=== PATIENT | female | born 1955 | race Caucasian/White ===

== ENCOUNTER 2017-04-23 20:34 | Observation (INO) | payer OTHER ==
[~2017-04-23] VITALS: Ht 160 cm; Wt 56.8 kg
[~2017-04-23 20:34] MED LIST: Aspirin E.C. PO; BENICAR20 MG PO; COSOPT EYE DROPS5 ML BOTH EYES; COZAAR100 MG PO; Colace PO; Cordarone, Pacerone PO; Coumadin Protocol PO; DORZOLAMIDE-TIM10 ML BOTH EYES; FOLIC ACID1 MG PO; Flexeril PO; Folvite PO; LATANOPROST2.5 ML BOTH EYES; Lopressor PO; METOPROLOL SUCC50 MG PO; PRAVASTATIN SOD40 MG PO; Theragran PO; Thiamine,Vitamin B1 PO; ULTRAM50 MG PO; Ultram PO; VITAMIN B-12500 MC3 PO; Xalatan 0.005% Ophth BOTH EYES
[2017-04-23 21:05] LABS: HEMATOCRIT 28.8 % (36.0-46.0); HEMOGLOBIN 9.8 G/DL (11.9-15.5); MCH 34.3 PG (29.0-34.0); MCV 100.7 FL (83-99); PLATELET COUNT 363 K/uL (156-360); RBC DIS.WIDTH-CV 13.7 % (11.8-14.6); RBC DIS.WIDTH-SD 50.2 % (39-53); RED BLOOD COUNT 2.86 M/uL (3.80-5.20); WHITE BLOOD COUNT 7.6 K/uL (4.1-10.2)
[2017-04-23 21:14] LABS: CHLORIDE 109 mEq/L (99-109); POTASSIUM 3.8 mEq/L (3.7-5.4); SODIUM 137 mEq/L (136-147)
[2017-04-23 21:16] LABS: GLUCOSE 79 mg/dL (70-99)
[2017-04-23 21:20] LABS: CREATININE 0.8 mg/dL (0.6-1.3); GFR ESTIMATE (CALCULATED) > 59 mL/min/; UREA NITROGEN (BUN) 14 mg/dL (9-23)
[2017-04-23 21:27] LABS: TROP-I INTERPRETATION NEGATIVE; TROPONIN-I < 0.01 ng/mL (0.0-0.30)
[2017-04-23] MEDS ORDERED: ONDANSETRON HCL4 MG PO (22:59)
[2017-04-23] MEDS ORDERED: TRAMADOL HCL50 MG PO (23:01)
[2017-04-23] MEDS ORDERED: LOSARTAN POTAS100 MG PO (23:03)
[2017-04-24 03:07] VITALS: BP 118/73
[2017-04-24 03:37] LABS: TROP-I INTERPRETATION NEGATIVE; TROPONIN-I < 0.01 ng/mL (0.0-0.30)
[2017-04-24 07:55] VITALS: BP 103/73
[2017-04-24 09:16] LABS: HEMATOCRIT 25.2 % (36.0-46.0); HEMOGLOBIN 8.5 G/DL (11.9-15.5); MCH 34.7 PG (29.0-34.0); MCHC 33.7 G/DL (30.0-36.0); MCV 102.9 FL (83-99); PLATELET COUNT 281 K/uL (156-360); RBC DIS.WIDTH-CV 14.2 % (11.8-14.6); RBC DIS.WIDTH-SD 53.5 % (39-53); RED BLOOD COUNT 2.45 M/uL (3.80-5.20); WHITE BLOOD COUNT 5.4 K/uL (4.1-10.2)
[2017-04-24 09:37] LABS: TROP-I INTERPRETATION NEGATIVE; TROPONIN-I < 0.01 ng/mL (0.0-0.30)
[2017-04-24 09:43] LABS: ALBUMIN 2.5 G/DL (3.2-4.8); ALKALINE PHOSPHATASE 76 IU/L (3-129); ALT (GPT) 22 IU/L (3-49); AST (GOT) 22 IU/L (2-34); CHLORIDE 110 MEQ/L (99-109); GFR ESTIMATE (CALCULATED) > 59 mL/min/; GLUCOSE 77 mg/dL (70-99); POTASSIUM 4.1 MEQ/L (3.7-5.4); SODIUM 137 MEQ/L (136-147); TOTAL BILIRUBIN 0.4 MG/DL (0.0-1.0); UREA NITROGEN (BUN) 16 mg/dL (9-23)
[2017-04-24] MEDS ORDERED: PROTONIX40 MG PO (15:11)
== END 2017-04-24 15:59 | disposition home or self-care (01) ==
LOC: EME 20:34 → EDOF 23:01 → 5WEST 23:01 → EDOF 23:01 → ENRESERV 23:02 → 5WEST 04-24 02:33
PROVIDERS: Internal Medicine
DX: R07.9 Chest pain, unspecified (principal); I95.9 Hypotension, unspecified; C15.9 Malignant neoplasm of esophagus, unspecified; I25.10 Atherosclerotic heart disease of native coronary artery without angina pectoris; D64.9 Anemia, unspecified; K76.0 Fatty (change of) liver, not elsewhere classified; I73.9 Peripheral vascular disease, unspecified; F10.10 Alcohol abuse, uncomplicated; F17.210 Nicotine dependence, cigarettes, uncomplicated; K44.9 Diaphragmatic hernia without obstruction or gangrene; I11.0 Hypertensive heart disease with heart failure; I50.9 Heart failure, unspecified; E78.5 Hyperlipidemia, unspecified; I42.0 Dilated cardiomyopathy; I27.20 Pulmonary hypertension, unspecified; I07.1 Rheumatic tricuspid insufficiency; J44.9 Chronic obstructive pulmonary disease, unspecified; Z82.5 Family history of asthma and other chronic lower respiratory diseases; Z80.3 Family history of malignant neoplasm of breast
CPT/HCPCS: 71046; 71275; 80048; 80053; 84484; 85027; 85379; 93005; 93306; 99281; 99285; G0378; J1644; J7030